=== PATIENT | male | born 1945 | race Caucasian/White ===

== ENCOUNTER 2025-05-29 09:04 | Day surgery (SDC) | payer MEDICARE, OTHER ==
[~2025-05-29] VITALS: Ht 182.9 cm; Wt 100.5 kg
[2025-05-29] VITALS (18 sets, daily range): BP systolic 104–157; BP diastolic 54–76; PULSE 47–59; RESP 10–16; TEMP 96.9; O2SAT 86–96
[~2025-05-29 09:04] MED LIST: ALLO100T PO; AMLO5TAB16 PO; ASPI81TA52 PO; CBD OIL; CYAN500T46 PO; DOPAMINE PO; ESCI20TA39 PO; FERR-29 PO; LEVO50TA8 PO; OMEP20CA16 PO; ROSU10TA98 PO; URSO300C2 PO; VITAMIN D3 PO
--- NOTE | 2025-05-29 09:55 | ELECTROCARDIOGRAPH REPORT ---
[facility] Test Date: 2025-05-29 Test Time: 09:52:47 Pat Name: ISABELL GILL Department: [facility] Patient ID: [id number] Room: Gender: M Environmental [employer] Department Chair: MADDIE : 1945 Requested By: JAH MONTIEL Order Number: [id number] Reading MD: Dr. GUZMAN Minor Measurements Intervals [place] Rate: 46 P: 21 [place]: 160 QRS: 65 QRSD: 121 T: 36 QT: 500 QTc: 438 Interpretive Statements Sinus bradycardia Ventricular premature complex Right bundle branch block Electronically Signed On 05-29-2025 17:22:[address] GUZMAN Minor Please click the below link to view image of tracing.
[2025-05-29 10:27] LABS: MEAN PLATELET VOLUME 9.2 FL (7.4-10.4); PRE OP HEMATOCRIT 46.2 % (42.0-52.0); PRE OP HEMOGLOBIN 15.7 g/dL (14.0-17.9); PRE OP PLATELET COUNT 166 X10'3 (140-440); PRE OP WHITE BLOOD COUNT 7.2 10'3 (4.8-10.8); RED CELL DISTRIBUTION WIDTH 13.6 % (11.5-14.5)
[2025-05-29] MEDS: clindamycin-Cleocin 900mg/D5W 50 ML IV ONE (10:37)
[2025-05-29] MEDS: ringers solution, lacted 1,000 ML IV SCH (10:38)
[2025-05-29 10:39] LABS: CREATININE 1.14 MG/DL (0.60-1.10); PRE OP ALT 28 U/L (30-65); PRE OP ANION GAP 10 (8-16); PRE OP AST 24 U/L (10-37); PRE OP BILIRUB, TOTAL 0.8 MG/DL (0.0-1.0); PRE OP GLUCOSE 114 MG/DL (70-104); PRE OP SODIUM 143 MMOL/L (135-145); TOTAL CARBON DIOXIDE 26.0 MMOL/L (24-32); eCRCL 59 ML/MIN; eGFR 62 ML/MIN
[2025-05-29 10:40] LABS: PRE OP POTASSIUM 4.5 MMOL/L (3.4-5.1)
[2025-05-29] MEDS ORDERED: HYDROmorphone/PF 0.2 MG/ML SYRINGE IV PRN ×2 (11:05)
[2025-05-29] MEDS ORDERED: ondansetron/PF 4mg/2ml inj IV PRN (11:05)
[2025-05-29] MEDS ORDERED: morphine 4 MG/ML inj SYRINge IV PRN (11:05)
[2025-05-29] MEDS ORDERED: acetaminophen 1,000mg/100ml IV 100 ML IV PRN (11:05)
[2025-05-29] MEDS ORDERED: labetalol 20mg/4ml (5mg/ml) syringe IV PRN (11:05)
[2025-05-29] MEDS ORDERED: hydrALAZINE 20mg/ml inj. IV PRN (11:05)
[2025-05-29] MEDS ORDERED: ringers solution, lacted 1,000 ML IV SCH (11:05)
[2025-05-29] MEDS ORDERED: midazolam 1 mg/ML 2ml injection ONE (11:21)
[2025-05-29] MEDS ORDERED: BUPIVAcaine 2.5mg/ml inj 50ml vial (contains preservative) ONE (11:36)
[2025-05-29] MEDS ORDERED: LIDOcaine 1% 30ml preserv. free vial ONE (11:36)
[2025-05-29] MEDS ORDERED: dexamethasone sod phosphate 4mg/ml inj. ONE (11:47)
[2025-05-29] MEDS ORDERED: propofol inj 20 ML IV ONE (11:47)
[2025-05-29] MEDS ORDERED: fentaNYL /PF 50mcg/ml 5ml ampule ONE (11:47)
[2025-05-29] MEDS ORDERED: rocuronium 10mg/ml inj IV ONE (11:47)
[2025-05-29] MEDS ORDERED: LIDOcaine 2% (20mg/ml) 5ml vial ONE (11:47)
[2025-05-29] MEDS ORDERED: ondansetron/PF 4mg/2ml inj ONE (11:47)
[2025-05-29] MEDS ORDERED: glycopyrrolate 0.2mg/ml inj ONE (11:47)
[2025-05-29] MEDS: BUPIVAcaine/PF 2.5 mg/ml (0.25%) 30ml vial IJ ONE (11:50)
[2025-05-29] MEDS: LIDOcaine 1% 30ml preserv. free vial IJ ONE (11:50)
--- NOTE | 2025-05-29 13:29 | OPERATIVE REPORT ---
Operative Report Providers to CC: MARY JANE MONTIEL ~ Date of Procedure: May 29, 2025 Pre-Operative Diagnosis: Bilateral inguinal hernias Post-Operative Diagnosis Bilateral inguinal hernias 1 cm umbilical hernia Procedure Performed Robotic assisted, laparoscopic bilateral inguinal hernia repairs with mesh 1 cm umbilical hernia repair Surgeon: Star Montiel MD FACS Rigger Up None Anesthesiologist: Sophie Junior Type of Anesthesia: General Findings: 1 cm umbilical hernia Bilateral inguinal hernias; small indirect left and moderate-sized indirect right and indirect right Wound class I Complications None Prosthetics\Implants used: Bilateral large Dextile mesh Estimated Blood Loss: Minimal Specimen Removed: Umbilical hernia sac and herniated preperitoneal fat excised and discarded Description of Procedure: Patient was brought to the operating room and identified by the nursing staff and the attending physician. Patient was placed supine and general anesthesia was induced. The patient's abdomen was prepped and draped in the standard rahul rile fashion. Preoperative antibiotics were given. Supraumbilical, midline incision was made to accommodate a 12 mm Wilson port. During dissection, a small umbilical hernia sac with herniated preperitoneal fat was encountered. These were both excised and discarded. Fascial edges were freshened and the defect was used for Wilson port placement. Wilson technique was used to gain access into the abdomen and the port was anchored to the fascia with 0 Vicryl suture. Abdomen was insufflated without incident. Laparoscope was inserted and the pelvis examined. Patient was placed in Trendelenburg position. Secondary, 8.5 mm robotic trochars were then placed in the right lateral left lateral upper abdomen just above the umbilical line. These were placed under laparoscopic guidance. Local anesthetic was infiltrated prior to their insertion. The da Dru robotic arm was docked to the patient. Instruments were guided intra-abdominally under laparoscopic visualization. Peritoneal rent was created starting at the left anterior superior iliac spine and carried across the anterior abdominal wall to the contralateral anterior superior iliac spine. The peritoneal flap was created and carried down to the symphysis pubis. Dissection was carried out bilaterally. On the left, there was a small to moderate-sized indirect inguinal hernia and on the right there were both indirect and indirect moderate-sized inguinal hernias. They were all completely reduced. Peritoneum was dissected away from the cord structures and out laterally to accommodate 2 separate pieces of large Dextile mesh. Bilateral critical views of the myopectineal orifice were obtained. Mesh and suture was passed into the abdomen. Bilateral mesh was placed covering potential obturator, femoral, direct, and indirect hernia spaces. Mesh was anchored at Tl's ligament, rectus muscle in the midline, and out laterally just anterior to the anterior superior iliac spine. Mesh laid without wrinkles or folds. Peritoneal rent was then reapproximated with running, absorbable 2/0 V-lock suture. [place] were retrieved. Abdomen was allowed to desufflate after instruments removed and da Dru robotic arm undocked from the patient. Umbilical port was removed as were the secondary trochars. The fascia at the umbilical port site was closed with a combination of 0 Ethibond and 0 Vicryl sutures, thus repairing the umbilical hernia defect. Skin was closed at all sites with 4-0 Monocryl sutures in a subcuticular fashion. Sterile dressings were applied. Patient was awakened and taken to the postanesthesia care unit in stable condition. Counts repoted as correct: Yes STAR MONTIEL MD May 29, 2025 13:29
--- NOTE | 2025-05-29 15:26 | HISTORY AND PHYSICAL ---
History & Physical Providers to CC CC: JAH MONTIEL MD ~ History of Present Illness Reason for Admit\Complaint: Bilateral inguinal hernia History of Present Illness Interval history and physical exam This is being dictated in a delayed fashion; I saw the patient before the case but forgot to dictate this Patient is here today for elective repair of his bilateral inguinal hernias He was seen earlier this summer but denies any change in his past medical history (please see previous history and physical exam for all pertinent details) He is here today for elective repair of his bilateral inguinal hernias Allergies: Coded Allergies: Penicillins (Verified Allergy, Unknown, 05/28/25) prednisone (Verified Allergy, Unknown, 05/28/25) RASH Home Medications Home Medications Active Reported B-12 (Cyanocobalamin (Vitamin B-12)) 500 Mcg Tablet 2,500 Mcg PO DAILY [Cbd Oil] Unknown Strength Unknown Dose DAILY [Dopamine Drops] Unknown Strength Unknown Dose PO DAILY Iron (Ferrous Sulfate) Unknown Strength Tablet 1 Tab PO DAILY [Vitamin D3] Unknown Strength Unknown Dose PO DAILY Aspirin EC (Aspirin) 81 Mg Tablet.dr 1 Tab PO DAILY 30 Days Allopurinol* (Allopurinol) 100 Mg Tablet 1 Tab PO DAILY Rosuvastatin Calcium 10 Mg Tablet 1 Tab PO QAM Escitalopram Oxalate 20 Mg Tablet 1 Tab PO DAILY Amlodipine Besylate 5 Mg Tablet 1 Tab PO DAILY Levothyroxine Sodium 50 Mcg Tablet 1 Tab PO QAM Omeprazole 20 Mg Capsule.dr 1 Cap PO DAILY Ursodiol 300 Mg Capsule 1 Cap PO BID ROS ROS Reviewed and negative Exam Vitals: Vital Signs Date Time Temp Pulse Resp B/P (MAP) Pulse Ox O2 Delivery O2 Flow Rate FiO2 05/29/25 14:50 47 14 128/57 (80) 92 Room Air 0.0 05/29/25 12:59 96.8 General: 80-year-old male in no acute distress Chest: Lungs are clear to auscultation bilaterally Cardiovascular: Regular rate and rhythm without murmur Abdomen: Soft and nondistended Diagnostic Data Last Recorded Lab Results: 05/29/25 1015 05/29/25 1015 Problems: (1) Bilateral inguinal hernia Assessment & Plan: The risks, benefits, and alternatives to a robotic assisted, laparoscopic bilateral inguinal hernia repair with mesh were discussed with the patient. Risks include, but are not limited to, bleeding, infection, injury to intra-abdominal structures, hernia recurrence and chronic postoperative pain. Patient verbalized understanding and wishes to proceed with surgery. We will do so today as scheduled JAH MONTIEL MD May 29, 2025 15:26
== END 2025-05-29 16:39 | disposition home or self-care (01) ==
LOC: PAS 09:04
PROVIDERS: ATTEND Surgery
DX: K40.20 Bilateral inguinal hernia, without obstruction or gangrene, not specified as recurrent (principal); K42.9 Umbilical hernia without obstruction or gangrene; I49.3 Ventricular premature depolarization; I45.10 Unspecified right bundle-branch block; I10 Essential (primary) hypertension; M10.9 Gout, unspecified; Z79.82 Long term (current) use of aspirin; Z79.890 Hormone replacement therapy; Z79.899 Other long term (current) drug therapy; Z88.0 Allergy status to penicillin; Z88.8 Allergy status to other drugs, medicaments and biological substances
CPT/HCPCS: 36415; 49591; 49650; 80053; 82948; 85025; 93005; A4215; A4314; A4618; C1781; J1100; J2003; J2250; J2405; J2704; J2710; J3010; J3490; J7030; J7120; Z7506; Z7508; Z7512; Z7610